=== PATIENT | male | born 1985 | race Caucasian/White ===

== ENCOUNTER 2016-12-31 11:03 | Emergency (ER) | payer MEDICAID ==
[~2016-12-31] VITALS: Ht 182.9 cm; Wt 86.6 kg
[2016-12-31 11:13] VITALS: Ht 182.9 cm; Wt 86.6 kg
[2016-12-31] MEDS ORDERED: ACETAMINOPHEN 325 MG TAB PO ONE (12:30)
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
[2016-12-31] MEDS ORDERED: ACET500C5 PO (13:06)
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
== END 2016-12-31 13:24 | disposition home or self-care (01) ==
LOC: FTE 11:03
DX: M25.561 Pain in right knee (principal); M25.562 Pain in left knee
CPT/HCPCS: 73562; Z7502; Z7610